=== PATIENT | male | born 1965 | race Caucasian/White ===

== ENCOUNTER → 2017-08-20 | Outpatient (CLI) | payer OTHER ==
[~2017-08-20] MED LIST: ALPRAZOLAM; ANTIVERT 25MG25 MG PO; FLEXERIL 1010 MG/TAB PO; PHENERGAN 25 TA25 MG PO; PHENERGAN25 MG RC; PRILOSEC 20MG20 MG PO; SYNTHROID PO; VALIUM 5MG T5 MG/TAB PO; ZOLOFT
== END ==
LOC: MHCPAIN 11:10
DX: G89.29 Other chronic pain (principal); M47.27 Other spondylosis with radiculopathy, lumbosacral region; M53.3 Sacrococcygeal disorders, not elsewhere classified; F17.210 Nicotine dependence, cigarettes, uncomplicated
CPT/HCPCS: G0463

== ENCOUNTER → 2017-08-30 | Outpatient (CLI) | payer OTHER | LOC: MHCPAIN 10:55 | DX: M51.27 Other intervertebral disc displacement, lumbosacral region (principal); M47.27 Other spondylosis with radiculopathy, lumbosacral region | CPT/HCPCS: J1100; Q9967 ==

== ENCOUNTER → 2017-09-05 | Outpatient (CLI) | payer OTHER | LOC: MHCPAIN 08:56 | DX: G89.29 Other chronic pain (principal); M47.27 Other spondylosis with radiculopathy, lumbosacral region; M53.3 Sacrococcygeal disorders, not elsewhere classified; F17.210 Nicotine dependence, cigarettes, uncomplicated; Z79.82 Long term (current) use of aspirin | CPT/HCPCS: G0463 ==

== ENCOUNTER → 2017-10-24 | Outpatient (CLI) | payer OTHER | LOC: MHCPAIN 14:44 | DX: G89.29 Other chronic pain (principal); M47.817 Spondylosis without myelopathy or radiculopathy, lumbosacral region; M54.16 Radiculopathy, lumbar region; M53.3 Sacrococcygeal disorders, not elsewhere classified | CPT/HCPCS: G0463 ==

== ENCOUNTER → 2017-11-29 | Outpatient (CLI) | payer OTHER | LOC: MHCPAIN 07:32 | DX: M47.817 Spondylosis without myelopathy or radiculopathy, lumbosacral region (principal); M46.97 Unspecified inflammatory spondylopathy, lumbosacral region ==

== ENCOUNTER → 2017-12-07 | Outpatient (CLI) | payer OTHER | LOC: MHCPAIN 09:38 | DX: G89.29 Other chronic pain (principal); M47.27 Other spondylosis with radiculopathy, lumbosacral region; M53.3 Sacrococcygeal disorders, not elsewhere classified; F17.210 Nicotine dependence, cigarettes, uncomplicated | CPT/HCPCS: G0463 ==

== ENCOUNTER → 2017-12-27 | Outpatient (CLI) | payer OTHER | LOC: MHCPAIN 13:37 | DX: M47.817 Spondylosis without myelopathy or radiculopathy, lumbosacral region (principal); M46.97 Unspecified inflammatory spondylopathy, lumbosacral region ==

== ENCOUNTER → 2018-01-01 | Outpatient (CLI) | payer OTHER | LOC: MHCPAIN 10:57 | DX: G89.29 Other chronic pain (principal); M47.27 Other spondylosis with radiculopathy, lumbosacral region; M53.3 Sacrococcygeal disorders, not elsewhere classified | CPT/HCPCS: G0463 ==

== ENCOUNTER → 2018-01-24 | Outpatient (CLI) | payer OTHER | LOC: MHCPAIN 12:23 | DX: M47.817 Spondylosis without myelopathy or radiculopathy, lumbosacral region (principal) | CPT/HCPCS: J1100; J2250; J3010 ==

== ENCOUNTER → 2018-01-31 | Outpatient (CLI) | payer OTHER | LOC: MHCPAIN 12:08 | DX: M47.817 Spondylosis without myelopathy or radiculopathy, lumbosacral region (principal) | CPT/HCPCS: J2250; J3010 ==

== ENCOUNTER → 2018-03-11 | Outpatient (CLI) | payer OTHER | LOC: MHCPAIN 14:25 | DX: G89.29 Other chronic pain (principal); M47.817 Spondylosis without myelopathy or radiculopathy, lumbosacral region; M54.16 Radiculopathy, lumbar region; M53.3 Sacrococcygeal disorders, not elsewhere classified | CPT/HCPCS: G0463 ==

== ENCOUNTER → 2018-03-21 | Outpatient (CLI) | payer OTHER | LOC: MHCPAIN 14:59 | DX: M47.27 Other spondylosis with radiculopathy, lumbosacral region (principal); M51.26 Other intervertebral disc displacement, lumbar region | CPT/HCPCS: J1040; Q9967 ==

== ENCOUNTER → 2018-04-16 | Outpatient (CLI) | payer OTHER | LOC: MHCPAIN 07:46 | DX: G89.29 Other chronic pain (principal); M47.817 Spondylosis without myelopathy or radiculopathy, lumbosacral region; M54.16 Radiculopathy, lumbar region; M53.3 Sacrococcygeal disorders, not elsewhere classified | CPT/HCPCS: G0463 ==

== ENCOUNTER → 2018-04-30 | Outpatient (CLI) | payer OTHER | LOC: COL.RAD 08:07 | DX: M46.86 Other specified inflammatory spondylopathies, lumbar region (principal); M48.061 Spinal stenosis, lumbar region without neurogenic claudication; M47.816 Spondylosis without myelopathy or radiculopathy, lumbar region ==

== ENCOUNTER → 2018-05-13 | Outpatient (CLI) | payer OTHER | LOC: MHCPAIN 14:59 | DX: G89.29 Other chronic pain (principal); M47.817 Spondylosis without myelopathy or radiculopathy, lumbosacral region; M54.16 Radiculopathy, lumbar region; M53.3 Sacrococcygeal disorders, not elsewhere classified; M48.061 Spinal stenosis, lumbar region without neurogenic claudication | CPT/HCPCS: G0463 ==

== ENCOUNTER → 2018-06-19 | Outpatient (CLI) | payer OTHER | LOC: COL.RAD 08:04 | DX: M51.26 Other intervertebral disc displacement, lumbar region (principal); M46.86 Other specified inflammatory spondylopathies, lumbar region; M48.061 Spinal stenosis, lumbar region without neurogenic claudication; M99.73 Connective tissue and disc stenosis of intervertebral foramina of lumbar region ==

== ENCOUNTER → 2018-08-13 | Outpatient (CLI) | payer OTHER | LOC: MHCPAIN 15:34 | DX: G89.29 Other chronic pain (principal); M47.817 Spondylosis without myelopathy or radiculopathy, lumbosacral region; M54.16 Radiculopathy, lumbar region; M53.3 Sacrococcygeal disorders, not elsewhere classified; M48.061 Spinal stenosis, lumbar region without neurogenic claudication | CPT/HCPCS: G0463 ==

== ENCOUNTER → 2019-02-04 | Outpatient (CLI) | payer OTHER | LOC: MHCPAIN 15:41 | DX: G89.29 Other chronic pain (principal); M47.817 Spondylosis without myelopathy or radiculopathy, lumbosacral region; M54.16 Radiculopathy, lumbar region; M53.3 Sacrococcygeal disorders, not elsewhere classified; M96.1 Postlaminectomy syndrome, not elsewhere classified | CPT/HCPCS: G0463 ==

== ENCOUNTER → 2019-04-01 | Outpatient (CLI) | payer OTHER | LOC: MHCPAIN 13:11 | DX: G89.29 Other chronic pain (principal); M47.817 Spondylosis without myelopathy or radiculopathy, lumbosacral region; M54.16 Radiculopathy, lumbar region; M53.3 Sacrococcygeal disorders, not elsewhere classified; M96.1 Postlaminectomy syndrome, not elsewhere classified | CPT/HCPCS: G0463 ==

== ENCOUNTER → 2019-05-20 | Outpatient (CLI) | payer OTHER | LOC: COL.RAD 11:57 | DX: R47.01 Aphasia (principal); R41.3 Other amnesia | CPT/HCPCS: Q9967 ==

== ENCOUNTER → 2019-08-05 | Outpatient (CLI) | payer OTHER | LOC: MHCPAIN 15:32 | DX: G89.29 Other chronic pain (principal); M47.817 Spondylosis without myelopathy or radiculopathy, lumbosacral region; M54.16 Radiculopathy, lumbar region; M53.3 Sacrococcygeal disorders, not elsewhere classified; M96.1 Postlaminectomy syndrome, not elsewhere classified | CPT/HCPCS: G0463 ==

== ENCOUNTER 2020-09-28 13:15 | Outpatient (RCR) | payer OTHER | END 2020-11-22 | disposition home or self-care (01) | LOC: WSOH | DX: S46.011A Strain of muscle(s) and tendon(s) of the rotator cuff of right shoulder, initial encounter (principal); M19.011 Primary osteoarthritis, right shoulder; F17.220 Nicotine dependence, chewing tobacco, uncomplicated; E05.00 Thyrotoxicosis with diffuse goiter without thyrotoxic crisis or storm; T78.40XA Allergy, unspecified, initial encounter; F32.9 Major depressive disorder, single episode, unspecified; M54.9 Dorsalgia, unspecified; Z98.890 Other specified postprocedural states; Z90.49 Acquired absence of other specified parts of digestive tract; Z99.0 Dependence on aspirator ==

== ENCOUNTER → 2020-11-22 | Outpatient (RCR) | payer OTHER | LOC: WSC | DX: S46.011A Strain of muscle(s) and tendon(s) of the rotator cuff of right shoulder, initial encounter (principal) ==

== ENCOUNTER 2021-03-07 15:00 | Outpatient (RCR) | payer OTHER | END 2021-03-10 | disposition still patient (30) | LOC: WSC | DX: M75.21 Bicipital tendinitis, right shoulder (principal); Z98.890 Other specified postprocedural states ==

== ENCOUNTER 2021-06-01 08:30 | Outpatient (RCR) | payer OTHER | END 2021-06-09 | disposition still patient (30) | LOC: WSC | DX: Z98.890 Other specified postprocedural states (principal) ==

== ENCOUNTER 2021-09-07 15:00 | Outpatient (RCR) | payer OTHER | END 2021-09-13 | disposition home or self-care (01) | LOC: WSPT | DX: M67.88 Other specified disorders of synovium and tendon, other site (principal); Z98.890 Other specified postprocedural states ==

== ENCOUNTER → 2021-09-22 15:00 | Outpatient (RCR) | payer OTHER | END | disposition home or self-care (01) | LOC: WSPT 09-14 09:00 | DX: Z98.890 Other specified postprocedural states (principal) ==

== ENCOUNTER → 2023-01-15 | Outpatient (CLI) | payer OTHER ==
[~2023-01-15] VITALS: Ht 167.6 cm; Wt 103.0 kg
[~2023-01-15] MED LIST changes: +BUSPAR DIVIDOSE15 MG PO; +SYNTHROID0.05 MG/TA PO; +SYNTHROID0.2 MG/TAB PO
[2023-01-15 10:51] VITALS: BP 131/90; PULSE 84; TEMP 99
[2023-01-15 11:45] VITALS: BP 152/92; PULSE 80
== END ==
LOC: COL.RAD 10:29
DX: M54.16 Radiculopathy, lumbar region (principal)
CPT/HCPCS: J3301

== ENCOUNTER → 2023-02-19 | Outpatient (CLI) | payer OTHER ==
[~2023-02-19] VITALS: Ht 167.6 cm; Wt 102.9 kg
[2023-02-19 09:51] VITALS: BP 132/84; PULSE 81; TEMP 98
[2023-02-19 11:05] VITALS: BP 152/86; PULSE 81
== END ==
LOC: COL.RAD 09:22
DX: M54.16 Radiculopathy, lumbar region (principal)
CPT/HCPCS: J3301

== ENCOUNTER → 2023-08-28 | Outpatient (CLI) | payer OTHER | LOC: MHCPAIN 15:16 | DX: M54.50 Low back pain, unspecified (principal); M79.2 Neuralgia and neuritis, unspecified; M47.816 Spondylosis without myelopathy or radiculopathy, lumbar region; M48.10 Ankylosing hyperostosis [Forestier], site unspecified; M16.11 Unilateral primary osteoarthritis, right hip; Z98.890 Other specified postprocedural states | CPT/HCPCS: G0463 ==

== ENCOUNTER → 2023-11-01 | Outpatient (CLI) | payer OTHER | LOC: MHCPAIN 13:34 | DX: M79.18 Myalgia, other site (principal); M54.31 Sciatica, right side; M54.50 Low back pain, unspecified | CPT/HCPCS: J3301 ==

== ENCOUNTER → 2023-12-11 | Outpatient (CLI) | payer OTHER | LOC: MHCPAIN 12:54 | DX: M54.50 Low back pain, unspecified (principal); M54.31 Sciatica, right side; Z98.890 Other specified postprocedural states; M25.851 Other specified joint disorders, right hip; G57.11 Meralgia paresthetica, right lower limb | CPT/HCPCS: G0463 ==

== ENCOUNTER → 2024-02-26 | Outpatient (CLI) | payer OTHER | LOC: MHCPAIN 11:19 | DX: M54.50 Low back pain, unspecified (principal); M24.651 Ankylosis, right hip; M24.652 Ankylosis, left hip; G57.11 Meralgia paresthetica, right lower limb; M79.2 Neuralgia and neuritis, unspecified | CPT/HCPCS: G0463 ==

== ENCOUNTER → 2024-03-05 | Outpatient (CLI) | payer OTHER ==
[~2024-03-05] MED LIST changes: +Iohexol 300 - 10 ML VIAL ONE; +Triamcinolone 40 MG/ML 1 ML VIAL ONE
== END ==
LOC: MHCPAIN 13:09
DX: M54.50 Low back pain, unspecified (principal); M25.551 Pain in right hip; M53.3 Sacrococcygeal disorders, not elsewhere classified; M48.061 Spinal stenosis, lumbar region without neurogenic claudication
CPT/HCPCS: J3301; Q9967

== ENCOUNTER → 2024-07-22 | Outpatient (CLI) | payer OTHER ==
[~2024-07-22] MED LIST changes: -Iohexol 300 - 10 ML VIAL ONE; -Triamcinolone 40 MG/ML 1 ML VIAL ONE
== END ==
LOC: MHCPAIN 14:33
DX: M54.50 Low back pain, unspecified (principal); M24.651 Ankylosis, right hip; M24.652 Ankylosis, left hip; M25.851 Other specified joint disorders, right hip; Z98.1 Arthrodesis status
CPT/HCPCS: G0463